=== PATIENT | female | born 1955 | race Two or more races ===

== ENCOUNTER → 2018-05-30 | Day surgery (SDC) | payer MEDICARE, BC, MEDICAID ==
[~2018-05-30] MED LIST: AMLO10TA6 PO; CALC300T5 PO; CLON0.1T PO; CLOP75TA PO; FENO48TA2 PO; FOLI0.8T3 PO; IV NORMAL SALINE 1000ML BAG 1,000 ML IV SCH; IV RINGERS,LACTATED 1000ML 1,000 ML IV SCH; LEVO175T5 PO; LIDO30CR TP; LIDOCAINE 1% PF 2 ML VIAL. ID PRN; MIDAZOLAM HCL/PF 2 MG/2 ML VIAL. IV PRN; PROP40TA PO; PROPOFOL 20 ML IV ONE; SEVE800T9 PO; SODIUM PHOSPHATES 19/7GM 133 ML ENEMA. ONE; fentaNYL PF VIAL 100 MCG/2 ML VIAL IV PRN
[2018-05-30 12:58] VITALS: BP 126/83
--- NOTE | 2018-05-30 13:25 | CONS ---
DATE OF CONSULTATION: 05/30/2018 REFERRING PHYSICIAN: Dr. Yañez. REASON FOR CONSULTATION: Melena. HISTORY OF PRESENT ILLNESS: A 62-year-old female whose past medical history is significant for nephrectomy as well as hypertension, hypothyroidism is seen for colonoscopy. She states she has been having dark stools recently. There has been no nausea, no vomiting, no abdominal pain, no change in weight or appetite. Colonoscopy approximately [address] Castillo was apparently unrevealing. Continued issues, she is here today. PAST MEDICAL HISTORY: Hypertension, hyperlipidemia, hypothyroidism, status post nephrectomy, status post oophorectomy. ALLERGIES: None. MEDICATIONS: Include amlodipine, calcium carbonate, clonidine, fenofibrate, folic acid, levothyroxine, lidocaine, propranolol and Renvela. SOCIAL HISTORY: Does not drink or smoke. FAMILY HISTORY: Noncontributory. REVIEW OF SYSTEMS: Per records is difficult to obtain due to language barrier. PHYSICAL EXAMINATION: GENERAL: Well-nourished, well-developed female. VITAL SIGNS: Temperature is 98, pulse 80, respirations 18. HEENT: Normocephalic and atraumatic. Pupils and extraocular muscles are not tested. Sclerae anicteric. NECK: Supple. LUNGS: Clear. CARDIOVASCULAR: Reveals an S1, S2 without S3, S4 or appreciable murmur. ABDOMEN: Soft abdomen, normal bowel sounds without appreciable hepatosplenomegaly. EXTREMITIES: Reveals no cyanosis, clubbing or edema. IMPRESSION: Melena. The etiology is to be determined. Differential includes colon polyps, colon cancer, arteriovenous malformations and inflammatory bowel disease as well as possible peptic ulcer disease. We will therefore recommend colonoscopy to further assess. If this is unrevealing, further consideration if the bleeding would continue and the patient remains anemic for upper endoscopy. DARLEEN VICTOR MD DR: LUIS/peterson JOB#: [id number] / [id number]
[2018-05-30 13:27] LABS: BASO % 1 % (0-3); EOS # 0.2 x10^3/uL (0.0-0.7); EOS % 3 % (0-3); HEMATOCRIT 34.5 % (36.0-47.0); HEMOGLOBIN 11.9 g/dL (12.0-15.5); LYMPH # 2.6 x10^3/uL (1.0-4.8); LYMPH % 41 % (24-48); MEAN CORPUSCULAR HEMOGLOBIN 34 pg (25-35); MEAN CORPUSCULAR HGB CONC 34 g/dL (31-37); MEAN CORPUSCULAR VOLUME 98 fL (79-100); MONO # 0.6 x10^3/uL (0.0-1.1); MONO % 10 % (0-9); NEUT # 2.9 x10^3uL (1.8-7.7); NEUT % 46 % (31-73); PLATELET COUNT 168 x10^3/uL (140-400); RED BLOOD COUNT 3.53 x10^6/uL (3.50-5.40); WHITE BLOOD COUNT 6.4 x10^3/uL (4.0-11.0)
== END | disposition home or self-care (01) ==
LOC: ENDOS 10:51
PROVIDERS: ATTEND Internal Medicine Gastroenterology
DX: K64.1 Second degree hemorrhoids (principal); I10 Essential (primary) hypertension; E78.5 Hyperlipidemia, unspecified; E03.9 Hypothyroidism, unspecified; Z90.5 Acquired absence of kidney; Z90.721 Acquired absence of ovaries, unilateral; Z79.899 Other long term (current) drug therapy
CPT/HCPCS: 36415; 45378; 85025; J2704